=== PATIENT | female | born 1960 | race Caucasian/White ===

== ENCOUNTER 2022-02-23 09:02 | Outpatient (CLI) | payer BC, SELFPAY | END 2022-02-23 09:03 | disposition home or self-care (01) | LOC: OP CLINIC 09:03 | PROVIDERS: PCP Family Medicine; Visit Provider Surgery | DX: Z12.11 Encounter for screening for malignant neoplasm of colon (principal); K62.1 Rectal polyp | CPT/HCPCS: 45378; J2250; J3010 ==

== ENCOUNTER 2022-07-27 13:33 | Outpatient (CLI) | payer BC, SELFPAY ==
[2022-07-27 17:37] LABS: Albumin* 4.6 g/dL (3.3-5.0); Chloride* 101 mmol/L (96-114); Potassium* 4.5 mmol/L (3.6-5.1); Sodium* 136 mmol/L (135-149)
[2022-07-27 17:39] LABS: Creatinine* 0.6 mg/dL (0.5-1.5); Estimated Glomerular Filt Rate 101 ml/min
[2022-07-27 17:40] LABS: Alanine Aminotransferase* 23 U/L (4-35); Alkaline Phosphatase* 88 U/L (40-150); Aspartate Amino Transferase* 24 U/L (12-35); Bilirubin Total* 0.4 mg/dL (0.1-1.5); Blood Urea Nitrogen* 21 mg/dL (7-30); Calcium* 10.1 mg/dL (8.4-10.6); Carbon Dioxide* 27 mmol/L (20-32); Glucose* 94 mg/dL (60-115); Total Protein* 7.1 g/dL (6.0-8.3)
== END 2022-07-27 13:34 | disposition home or self-care (01) ==
LOC: NFLDREF 13:35
PROVIDERS: PCP Family Medicine; Visit Provider Family Medicine
DX: E78.5 Hyperlipidemia, unspecified (principal); M17.0 Bilateral primary osteoarthritis of knee; I10 Essential (primary) hypertension; F41.8 Other specified anxiety disorders; Z79.1 Long term (current) use of non-steroidal anti-inflammatories (NSAID)
CPT/HCPCS: 80053

== ENCOUNTER 2022-09-16 14:37 | Outpatient (CLI) | payer BC, SELFPAY | END 2022-09-16 14:38 | disposition home or self-care (01) | LOC: NFLDREF 14:37 | PROVIDERS: PCP Family Medicine; Visit Provider Family Medicine | DX: R19.7 Diarrhea, unspecified (principal) | CPT/HCPCS: 83630; 87045; 87046; 87077; 87177; 87209; 87338; 87427; 87493; 87505 ==

== ENCOUNTER 2022-10-06 14:26 | Outpatient (CLI) | payer BC, SELFPAY ==
--- NOTE | 2022-10-06 14:40 | CRLHL7_ITS ---
For Patients: As a result of the Century Cures Act, medical imaging exams and procedure reports are released immediately into your electronic medical record. You may view this report before your referring provider. If you have questions, please contact your health care provider. BILATERAL SCREENING MAMMOGRAM WITH COMPUTER-AIDED DETECTION TECHNIQUE: CC and MLO views were obtained. These mammographic images have been obtained using full-field digital technique. These mammographic images were interpreted with the benefit of computer-aided detection. COMPARISON FILM: 09/03/21, 09/02/20,08/28/19. FINDINGS: There are scattered areas of fibroglandular density IMPRESSION: There is no radiographic evidence for malignancy. ASSESSMENT: BI-RADS Category 2: Benign RECOMMENDATION: Routine screening mammogram in 1 year. A lay language report of this examination will be provided to the patient. Edwin Doyle M.D. Diagnostic Radiologist [email or web address] Transcribed: 1:59 p.m. DW/Dictated by: Edwin Doyle MD @ 10/07/2022 12:40:00 PM (Electronically Signed)
== END 2022-10-06 14:27 | disposition home or self-care (01) ==
LOC: MAMMO 14:27
PROVIDERS: PCP Family Medicine; Visit Provider Internal Medicine Hematology & Oncology
DX: Z12.31 Encounter for screening mammogram for malignant neoplasm of breast (principal)
CPT/HCPCS: 77063; 77067

== ENCOUNTER 2022-10-13 09:05 | Outpatient (CLI) | payer BC, SELFPAY ==
--- NOTE | 2022-10-13 09:15 | CRLHL7_ITS ---
For Patients: As a result of the Century Cures Act, medical imaging exams and procedure reports are released immediately into your electronic medical record. You may view this report before your referring provider. If you have questions, please contact your health care provider. RIGHT CHEST WALL ULTRASOUND INDICATION 62-year-old with lump in the midline chest. COMPARISON None. FINDINGS Ultrasound of the patient`s lump corresponds to a 1.2 x 0.7 x 1.1 cm superficial oval circumscribed hypoechoic mass with skin tract. This is compatible with a benign sebaceous cyst. IMPRESSION Patient`s lump corresponds to a benign sebaceous cyst. Recommend continuing with yearly screening mammography. BI-RADS Category 2: Benign Clare Araya M.D. Diagnostic/Breast Radiologist [email or web address] JESSICAP/mahesh aragon/Dictated by: Clare Araya MD @ 10/14/2022 8:59:00 AM (Electronically Signed)
== END 2022-10-13 09:06 | disposition home or self-care (01) ==
PROVIDERS: PCP Family Medicine; Visit Provider Internal Medicine Hematology & Oncology
DX: R22.2 Localized swelling, mass and lump, trunk (principal)
CPT/HCPCS: 76604

== ENCOUNTER 2023-01-07 14:58 | Outpatient (RCR) | payer BC, SELFPAY | END 2023-04-10 23:59 | disposition home or self-care (01) | LOC: CCIC 14:58 | PROVIDERS: PCP Family Medicine; Visit Provider Internal Medicine Hematology & Oncology | DX: C50.912 Malignant neoplasm of unspecified site of left female breast (principal); Z17.0 Estrogen receptor positive status [ER+]; Z79.811 Long term (current) use of aromatase inhibitors; R23.2 Flushing | CPT/HCPCS: 99212; 99213; 99214 ==

== ENCOUNTER 2023-01-29 07:35 | Outpatient (CLI) | payer BC, SELFPAY | END 2023-01-29 07:36 | disposition home or self-care (01) | LOC: NFLDREF 20:31 | PROVIDERS: PCP Family Medicine; Referring Provider Family Medicine; Visit Provider Family Medicine | DX: I10 Essential (primary) hypertension (principal); E78.5 Hyperlipidemia, unspecified; Z86.2 Personal history of diseases of the blood and blood-forming organs and certain disorders involving the immune mechanism; M85.80 Other specified disorders of bone density and structure, unspecified site | CPT/HCPCS: 80053; 80061; 82306 ==

== ENCOUNTER 2023-06-15 09:01 | Outpatient (CLI) | payer BC, SELFPAY ==
--- NOTE | 2023-06-15 09:15 | CRLHL7_ITS ---
For Patients: As a result of the Century Cures Act, medical imaging exams and procedure reports are released immediately into your electronic medical record. You may view this report before your referring provider. If you have questions, please contact your health care provider. INDICATION: Postmenopausal bleeding. TECHNIQUE: Ultrasound pelvis transabdominal and transvaginal. COMPARISON: None. FINDINGS: Uterus: 8 x 7 x 5 cm. There are 3 distinct fibroids. Largest fibroid in the left uterine body measures 3 cm. Second largest fibroid measures 2.3 cm. Third smallest fibroid is posterior and calcified. Endometrium: Transvaginal imaging was performed to better evaluate the endometrium. Endometrial thickness measures 3 mm. No sign of endometrial mass or fluid. Neither ovary was visualized. No ovarian or adnexal masses. Cul-de-sac: No significant free fluid. IMPRESSION: There are 3 distinct uterine fibroids with the largest measuring 3 cm. Endometrium appears normal. No other abnormality evident. Dictated by Jose Raul Tolbert MD @ 06/16/2023 2:43:33 PM (Electronically Signed)
== END 2023-06-15 09:02 | disposition home or self-care (01) ==
LOC: US 09:02
PROVIDERS: PCP Family Medicine; Visit Provider Family Medicine
DX: N95.0 Postmenopausal bleeding (principal); D25.9 Leiomyoma of uterus, unspecified
CPT/HCPCS: 76830; 76856

== ENCOUNTER 2023-10-08 14:14 | Outpatient (CLI) | payer BC, SELFPAY ==
--- NOTE | 2023-10-08 14:20 | MM_ITS ---
Patient: JUNG RAMIREZ Facility:?[facility] Patient ID:?[id number] Site Patient ID:?[id number]. Site :?[id number] Study:?XRay-Breast Bilateral 3D-10/08/2023 2:39:16 PM Ordering Physician:Librado Final Report: BILATERAL SCREENING MAMMOGRAM WITH COMPUTER-AIDED DETECTION AND TOMOSYNTHESIS TECHNIQUE: CC and MLO views were obtained. These mammographic images have been obtained using full-field digital technique. These mammographic images were interpreted with the benefit of computer-aided detection. Breast Tomosynthesis was used in this interpretation. COMPARISON FILM: 10/06/2022, 09/03/2021, 09/02/2020. FINDINGS: The breasts are heterogeneously dense, which may obscure small masses. IMPRESSION: There is no radiographic evidence for malignancy. ASSESSMENT: BI-RADS Category 2: Benign RECOMMENDATION: Routine screening mammogram in 1 year. A lay language report of this examination will be provided to the patient. Edwin Doyle M.D. Diagnostic Radiologist [email or web address] ALENA/sp R& Transcribed: 11:53 a.m. SP/Dictated by: Edwin Doyle MD @ 10/22/2023 11:12:00 AM Signed by:?Edwin Doyle MD @10/22/2023 12:07:04 PM (Electronic Signature)
== END 2023-10-08 14:15 | disposition home or self-care (01) ==
LOC: MAMMO 14:15
PROVIDERS: PCP Internal Medicine Hematology & Oncology; Visit Provider Family Medicine
DX: Z12.31 Encounter for screening mammogram for malignant neoplasm of breast (principal); R92.2 Inconclusive mammogram
CPT/HCPCS: 77063; 77067

== ENCOUNTER 2023-10-11 08:18 | Outpatient (CLI) | payer BC, SELFPAY | END 2023-10-11 08:19 | disposition home or self-care (01) | LOC: NFLDREF 10-13 14:11 | PROVIDERS: PCP Family Medicine; Referring Provider Family Medicine; Visit Provider Family Medicine | DX: I10 Essential (primary) hypertension (principal); M81.0 Age-related osteoporosis without current pathological fracture; Z79.1 Long term (current) use of non-steroidal anti-inflammatories (NSAID) | CPT/HCPCS: 80053; 82306 ==

== ENCOUNTER 2023-12-28 16:15 | Outpatient (RCR) | payer BC, SELFPAY | END 2024-03-24 11:40 | disposition home or self-care (01) | PROVIDERS: PCP Family Medicine; Visit Provider Family Medicine | DX: M54.16 Radiculopathy, lumbar region (principal); Z51.89 Encounter for other specified aftercare | CPT/HCPCS: 97110; 97112; 97140; 97161 ==

== ENCOUNTER 2024-01-06 14:33 | Outpatient (RCR) | payer BC, SELFPAY ==
--- NOTE | 2024-02-16 15:42 | ONC.NURNOTE ---
Dexa scan reviewed by Darby Vitale PA-C, per Dania pt still has osteopenia, repeat scan in 2 years.
== END 2024-07-04 23:59 | disposition home or self-care (01) ==
LOC: CCIC 14:33
PROVIDERS: PCP Family Medicine; Visit Provider Internal Medicine Hematology & Oncology
DX: C50.912 Malignant neoplasm of unspecified site of left female breast (principal); Z17.0 Estrogen receptor positive status [ER+]; M85.89 Other specified disorders of bone density and structure, multiple sites
CPT/HCPCS: 99214; G0463

== ENCOUNTER 2024-02-01 07:36 | Outpatient (CLI) | payer BC, SELFPAY ==
--- OUTSIDE RECORDS SUMMARY | 2024-02-04 15:15 | XMS_ITS | Clinical Summary ---
Author Organization [facility] Address [place], [place] [address] Care Team Providers Care Decay Control Operator Name Role Phone Pcp, No Primary Care Provider Unavailabl e Allergies Active Allergy Reactions Criticality Noted Date Comments Cephalosporins Rash 09/07/2017 Sulfa (Sulfonamide Antibiotics) 05/20 Medications Medication Sig Dispensed Refills Start Date End Date Status PSYLLIUM 500 MG CAPIndications:Irrit able bowel syndrome 0 06/07/2007 Activ e calcium 250 mg tablet Take 1 tablet by mouth 2 times daily with meals. 0 09/08/2012 Active vitamin e 1,000 unit cap Take by mouth once daily. 0 09/08/2012 Active multivitamin (MULTIPLE VITAMINS) tablet Take 1 tablet by mouth once daily. 0 09/21/2013 Active cod liver oil cap Take 2 capsules by mouth once daily. 0 11/21/2015 Active fexofenadine (JOHNNY) 180 mg tabletIndications:Al lergic rhinitis TAKE 1 TABLET BY MOUTH ONCE DAILY. 90 tablet 2 12/18/2017 Active anastrozole (ARIMIDEX) 1 mg tablet Take 1 mg by mouth once daily. 9 12/14/2017 Active CALCIUM 600 + D,3, tabletIndications:Os teopenia, unspecified location TAKE ONE TABLET BY MOUTH TWICE A DAY WITH MEALS 180 tablet 1 01/12/2018 Active lisinopril (PRINIVIL; ZESTRIL) 20 mg tabletIndications:HT N (hypertension) Take 1 tablet by mouth once daily. 90 tablet 07/17/2018 Active hydroCHLOROthiazide (HCTZ) 25 mg tabletIndications:HT N (hypertension) Take 1 tablet by mouth once daily. 90 tablet 07/17/2018 Active sertraline (ZOLOFT) 100 mg tabletIndications:Dy sthymic disorder Take 2 tablets by mouth once daily. 180 tablet 1 07/17/2018 Active Active Problems Problem Noted Date Diagnosed Date Malignant neoplasm of lower- inner quadrant of left breast in female, estrogen receptor positive 09/02/2017 Osteopenia 04/16/2015 Screen for colon cancer 01/08/2012 Overview: Colonoscopy 12/2011 normal repeat in 10 years Rosacea 08/20/2011 HTN (hypertension) 08/05/2010 Dysthymic disorder 06/07/2007 Overview: Depression Allergic rhinitis, cause unspecified 06/07/2007 Irritable bowel syndrome 06/07/2007 Immunizations Name Administration Dates Next Due AMB Influenza, IIV3 (Age >=3 years)(Flu Clinic O n[facility]) 05/20/2011 Influenza A (H1N1), Inactivated (Age >=3 Years) 08/06/2009 Influenza Virus, Unspecified 04/28/2017,04/26/20 14 Td (Age >=7 Years) 02/11/1996 Tdap 10/25/2007 Family History Medical History Relation Name Comments Arthritis Maternal Aunt Arthritis Maternal Grandmother Hypertension Mother Osteoporosis Mother diagnosed at 60 Relation Name Status Comments Father (Age 73) smoker Maternal Aunt Maternal Grandmother Mother Social History Tobacco Use Types Packs/Day Years Used Date Smoking Tobacco: Former Cigarettes Q uit: 07/19/2003 Smokeless Tobacco: Never Tobacco Cessation:Counseling Given: Yes Comments:quit in 2003 Alcohol Use Standard Drinks/Week Comments Yes 2 (1 standard drink = 0.6 oz pur e alcohol) occasional PHQ-2 Answer Date Recorded PHQ-2 Score 1 09/17/2018 Sex and Gender Information Value Date Recorded Sex Assigned at Not on file Gender Identity Not on file Sexual Orientation Not on file Obstetrics History Para Term AB IAB SAB Ectopic Multiple Livin g Live Births 4 4 4 4 Date Outcome GA Total Labor Labor/2nd/3rd Weight Sex Type Anes PTL Corrie A1 A5 Name Clin Term Term Term Term Last Filed Vital Signs Vital Sign Reading Time Taken Comments Blood Pressure 142/87 03/08/2018 2:43 PM CDT tow er Pulse 67 03/08/2018 2:43 PM CDT Temperature 36.5 ??C (97.7 ??F) 10/05/2017 1:46 PM CD T Respiratory Rate - - Oxygen Saturation 97% 03/08/2018 2:43 PM CDT Inhaled Oxygen Concentration - - Weight 80.8 kg (178 lb 3.2 oz) 03/08/2018 2:43 P M CDT Height 171.7 cm (5' 7.6) 03/08/2018 2:43 PM CDT Body Mass Index 27.42 03/08/2018 2:43 PM CDT Plan of Treatment Health Maintenance Due Date Last Done Comments HIV for age 15-65 01/04/1975 Zoster (shingles) series for age 50+ (1 of 2) 01/04/2010 Tetanus booster 10/24/2017 10/25/2007, 02/11/1996 Depression screening for age 12+ 12/16/2018 12/16/2017, 12/08/2016, 11/21/2015 BMI (ht and wt on same day) for age 18+ 03/08/2019 03/08/2018, 09/16/2017, 09/07/2017, Additional history exists Mammogram for age 45-75 08/26/2019 08/26/19 19, 08/24/2017, 08/19/2016, Additional history exists Lipids for age 45-75 11/22/2020 11/23/2015, 10/10/2014, 09/15/2012, Additional history exists Colonoscopy through age 75 01/07/2022 01/08/2012, Pap test for age 21-65 02/20/2023 0, 02/21/2020, 12/08/2016, Additional history exists COVID-19 vaccine series (2022- season) 2023 Influenza for age 50-64 03/19/2024 04/28/20 17, 04/26/2014, 04/02/2012, Additional history exists Tdap Completed 10/25/2007 Hepatitis C screening for age 18-79 Completed 11/23/2015 Pneumococcal series for age 6-64 Aged Out No longer eligible based on patient's age to complete this topic Procedures Procedure Name Priority Date/Time Associated Diagnosis Comments CONSTRUCTION FOREMAN THIN PREP PAP SCREEN IMAGED Routine 02/21/2020 3:30 PM CDT SCAN-MAMMOGRAPHY REPORT 08/26/2018 12:00 AM SOCIAL SECRETARY ANTI HCV Routine 11/23/2015 9:07 AM CDT Need for hepatitis C screening test LIPID PANEL W REFLEX MEASURED LDL Routine 11/23/2015 9:07 AM CDT Screening, lipid from Last 3 Months or Most Recently Relevant to Health Maintenance Results * CONSTRUCTION FOREMAN THIN PREP PAP SCREEN IMAGED (02/21/2020 3:30 PM CDT) Pathologist [facility] Case Report Gynecologic Cytology Report ? Case: [id number] ? Authorizing Provider: ??Bing Kimbrough MD ??Collected: ? 02/21/2020 1530 ? Ordering Location: ? [facility] ?Received: ?02/23/2020 1355 ? First Screen: ?Cassi Espino ? Specimen: ?CONSTRUCTION FOREMAN ThinPrep Vial Screening, Cervical/Vaginal ? 03/01/2020 2:15 PM CDT [facility] INTERPRETATION/ RESULT NEGATIVE FOR INTRAEPITHELIAL LESION OR MALIGNANCY (NIL) (none) 03/01/2020 2:15 PM CDT [facility] IMEN ADEQUACY Satisfactory for evaluation Endocervical component present 03/01/2020 2:15 PM CDT [facility] HPV REQUEST HPV and PAP 03/01/2020 2:15 PM CDT [facility] Additional Information 03/01/2020 2:15 PM CDT [facility] Comment: Interpreted at [facility] - [address], [place] [address] Automated Review Successful 03/01/2020 2:15 PM CDT [facility] Comment:Specimen processed s uccessfully by automated booth usher device, ThinPrep Imaging System, [employer] ANCILLARY TESTING CONSTRUCTION FOREMAN HPV Ordered, Please see separate report 03/01/2020 2:15 PM CDT [facility] Note The pap test is a screening technique, not a diagnostic procedure. It is used primarily to screen for squamous cancers and precursor lesions. Published studies have shown that it is subject to both false negative and false positive results. The pap test should not be used as the sole means to diagnose or exclude pre-malignant and malignant lesions. 03/01/2020 2:15 PM CDT [facility] Other (Cervical/Vagina l) 02/21/2020 3:30 PM CDT 02/23/2020 1:55 PM CDT Bing Kimbrough MD PATHOLOGY/CYTOLO GY [facility] [address] [place] [address], * SCAN-MAMMOGRAPHY REPORT (08/26/2018 12:00 AM SOCIAL SECRETARY) Anatomical Region Laterality Modality Other Scanner OTHER * (ABNORMAL) LIPID PANEL W REFLEX MEASURED LDL (11/23/2015 9:07 AM CDT) CHOLESTEROL,TOTAL 203(H) 100 - 199 mg/dL 11/23/2015 9:47 AM CDT [facility] TRIGLYCERIDES 70 <150 mg/dL 11/23/2015 9:47 AM CDT [facility] HDL CHOLESTEROL 66 >40 mg/dL 11/23/2015 9:47 AM CDT [facility] NON-HDL CHOLESTEROL 137 <145 mg/dl 11/23/2015 9:47 AM CDT [facility] CHOL/HDL RATIO 3.08 <4.50 11/23/2015 9:47 AM CDT [facility] LDL CHOLESTEROL 123 <=130 mg/dL 11/23/2015 9:47 AM CDT [facility] PATIENT STATUS FASTING 11/23/2015 9:47 AM CDT [facility] Blood specimen (specimen) BLOOD SPECIMEN / Unknown Venipuncture / Unknown 11/23/2015 9:07 AM CDT 11/23/2015 9:07 AM CDT Rebeca Lowry NP CHEMISTRY [facility] [address] [place] [address], * ANTI HCV (11/23/2015 9:07 AM CDT) HEPATITIS C ANTIBODY Non-Reacti ve Non-Reacti ve 11/23/2015 4:59 PM CDT [facility] Blood specimen (specimen) BLOOD SPECIMEN / Unknown Venipuncture / Unknown 11/23/2015 9:07 AM CDT 11/23/2015 9:07 AM CDT Narrative [facility] - 11/23/2015 4:59 PM CDT Antibodies to HCV not detected; does not exclude the possibility of exposure to HCV. Rebeca Lowry NP SEND OUTS [facility] [address] [place] [address], [place] from Last 3 Months or Most Recently Relevant to Health Maintenance Care Teams Decay Control Operator Relationship Specialty Start Date End Date Pcp, No . PCP - General 06/24/18
== END 2024-02-01 07:37 | disposition home or self-care (01) ==
LOC: NFLDREF 02-04 15:13
PROVIDERS: PCP Family Medicine; Referring Provider Family Medicine; Visit Provider Family Medicine
DX: E78.5 Hyperlipidemia, unspecified (principal); I10 Essential (primary) hypertension; R73.01 Impaired fasting glucose; Z79.811 Long term (current) use of aromatase inhibitors
CPT/HCPCS: 80053; 80061

== ENCOUNTER 2024-02-09 13:35 | Outpatient (CLI) | payer BC, SELFPAY ==
--- OUTSIDE RECORDS SUMMARY | 2024-02-09 13:39 | XMS_ITS | Clinical Summary ---
Author Organization [facility] Address [place], [place] [address] Care Team Providers Care Pneumatic Hoist Operator Name Role Phone Pcp, No Primary [...] Procedure Name Priority Date/Time Associated Diagnosis Comments HUMANE AGENT THIN PREP PAP SCREEN IMAGED Routine 02/21/2020 3:30 PM CDT SCAN-MAMMOGRAPHY REPORT 08/26/2018 12:00 AM PAPER MILL MANAGER ANTI HCV Routine 11/23/2015 9:07 AM CDT Need for hepatitis C screening test LIPID PANEL W REFLEX MEASURED LDL Routine 11/23/2015 9:07 AM CDT Screening, lipid from Last 3 Months or Most Recently Relevant to Health Maintenance Results * HUMANE AGENT THIN PREP PAP SCREEN IMAGED (02/21/2020 3:30 PM CDT) Pathologist [facility] Case Report Gynecologic Cytology Report ? Case: [id number] ? Authorizing Provider: ??Bing Kimbrough MD ??Collected: ? 02/21/2020 1530 ? Ordering Location: ? [facility] ?Received: ?02/23/2020 1355 ? First Screen: ?Cassi Espino ? Specimen: ?HUMANE AGENT ThinPrep Vial Screening, Cervical/Vaginal ? 03/01/2020 2:15 PM CDT [facility] INTERPRETATION/ RESULT NEGATIVE FOR INTRAEPITHELIAL LESION OR MALIGNANCY (NIL) (none) 03/01/2020 2:15 PM CDT [facility] IMEN ADEQUACY Satisfactory for evaluation Endocervical component present 03/01/2020 2:15 PM CDT [facility] HPV REQUEST HPV and PAP 03/01/2020 2:15 PM CDT [facility] Additional Information 03/01/2020 2:15 PM CDT [facility] Comment: Interpreted at [facility] - [address], [place] [address] Automated Review Successful 03/01/2020 2:15 PM CDT [facility] Comment:Specimen processed s uccessfully by automated curb attendant device, ThinPrep Imaging System, [employer] ANCILLARY TESTING HUMANE AGENT HPV Ordered, Please see separate report 03/01/2020 2:15 PM CDT [facility] Note The pap test is a [...] and malignant lesions. 03/01/2020 2:15 PM CDT [facility] Other (Cervical/Vagina l) 02/21/2020 3:30 PM CDT 02/23/2020 1:55 PM CDT Bing Kimbrough MD PATHOLOGY/CYTOLO GY [facility] [address] [place] [address], * SCAN-MAMMOGRAPHY REPORT (08/26/2018 12:00 AM PAPER MILL MANAGER) Anatomical Region Laterality Modality Other Scanner OTHER * (ABNORMAL) LIPID PANEL W REFLEX MEASURED LDL (11/23/2015 9:07 AM CDT) CHOLESTEROL,TOTAL 203(H) 100 - 199 mg/dL 11/23/2015 9:47 AM CDT [facility] TRIGLYCERIDES 70 <150 mg/dL 11/23/2015 9:47 AM CDT [facility] HDL CHOLESTEROL 66 >40 mg/dL 11/23/2015 9:47 AM CDT [facility] NON-HDL CHOLESTEROL 137 <145 mg/dl 11/23/2015 9:47 AM CDT [facility] CHOL/HDL RATIO 3.08 <4.50 11/23/2015 9:47 AM CDT [facility] LDL CHOLESTEROL 123 <=130 mg/dL 11/23/2015 9:47 AM CDT [facility] PATIENT STATUS FASTING 11/23/2015 9:47 AM CDT [facility] Blood specimen (specimen) BLOOD SPECIMEN / Unknown Venipuncture / Unknown 11/23/2015 9:07 AM CDT 11/23/2015 9:07 AM CDT Rebeca Lowry NP CHEMISTRY [facility] [address] [place] [address], * ANTI HCV (11/23/2015 9:07 AM CDT) HEPATITIS C ANTIBODY Non-Reacti ve Non-Reacti ve 11/23/2015 4:59 PM CDT [facility] Blood specimen (specimen) BLOOD SPECIMEN / Unknown Venipuncture / Unknown 11/23/2015 9:07 AM CDT 11/23/2015 9:07 AM CDT Narrative [facility] - 11/23/2015 4:59 PM CDT Antibodies to HCV not detected; does not exclude the possibility of exposure to HCV. Rebeca Lowry NP SEND OUTS [facility] [address] [place] [address], [place] from Last 3 Months or Most Recently Relevant to Health Maintenance Care Teams Pneumatic Hoist Operator Relationship Specialty Start Date End Date Pcp, No . PCP - General 06/24/18
--- NOTE | 2024-02-09 14:00 | CRLHL7_ITS ---
For Patients: As a result of the Century Cures Act, medical imaging exams and procedure reports are released immediately into your electronic medical record. You may view this report before your referring provider. If you have questions, please contact your health care provider. DXA BONE MINERAL DENSITY STUDY Reason for exam: History of cancer, aromatase inhibitor. Current height (inches): 67 Weight (lbs.): 178 Menopause age: 52 Ethnicity: White 1. Have you had a previous hip or vertebral fracture? Yes. 2. Have you had any fractures during your adult life which did not result from significant trauma (e.g., auto accident)? Yes. 3. Did either of your parents have a hip fracture? No. 4. Do you smoke? No. 5. Have you ever taken Glucocorticoids? No. 6. Do you have rheumatoid arthritis? No. 7. Do you have secondary osteoporosis? No. 8. Do you drink 3 or more alcoholic drinks per day? No. 9. Are you being treated for osteoporosis? No. 10. Have you ever taken any of the following medications: Actonel, Evista, Fosamax, Miacalcin, Reclast, Boniva, Forteo, HRT (i.e., estrogen/hormone therapy), Protelos, Prolia, Vitamin D, Calcium, other ??? please specify. ANSWER: Yes; vitamin D, calcium. 11. Do you have any of the following medical conditions: Anorexia or bulimia, asthma or emphysema, end stage renal disease, hyperparathyroidism, any seizure disorders, cancer, inflammatory bowel diseases, hysterectomy, other ??? please specify. ANSWER: Yes; cancer. 12. What was your maximum height (inches)? 67. 13. Do you perform weightbearing exercise regularly? Yes. 14. Do you regularly consume dairy products? Yes. 15. Do you drink caffeinated beverages? Yes. 16. At what age did your period start? 14. 17. Are you premenopausal? No. 18. How many full-term pregnancies have you had? 4. 19. Have you ever missed your period for more than 6 months in a row (not including or menopause)? No. TECHNIQUE: Bone mineral density study was performed using the [employer] FINDINGS: The results of the study expressed as bone mineral density (BMD) are as follows: Lumbar Spine L1 to L2, L4: BMD: 0.909 g/cm2. T-score: -1.1. Z-score: 0.6. Right Neck: BMD: 0.674 g/cm2. T-score: -1.6. Z-score: -0.1. Right Total Hip: BMD: 0.883 g/cm2. T-score: -0.5. Z-score: 0.7. Left Radius 33%: BMD: 0.564 g/cm2. T-score: -2.2. Z-score: -0.6. IMPRESSION: Osteopenia. COMPARISON: Compared with scan of 11/19/2021, the bone mineral density has increased by 6.1% at the spine, increased by 0.5% at the hip, and decreased by 6.3% at the radius. Compared with scan of 09/06/2019, the bone mineral density has decreased by 10.0% at the spine and decreased by 3.8% at the hip. *Comparison exams done prior to 12/2019 were performed on different unit, [facility]. EDWIN MCGRATH M.D. Diagnostic Radiologist [email or web address] Transcribed: 9:[address]/Dictated by: Edwin Mcgrath MD @ 02/10/2024 8:09:00 AM (Electronically Signed)
== END 2024-02-09 13:36 | disposition home or self-care (01) ==
LOC: RAD 13:37
PROVIDERS: PCP Family Medicine; Visit Provider Physician Assistant
DX: Z79.811 Long term (current) use of aromatase inhibitors (principal); M85.89 Other specified disorders of bone density and structure, multiple sites
CPT/HCPCS: 77080

== ENCOUNTER 2024-06-12 14:59 | Outpatient (CLI) | payer BC, SELFPAY ==
--- OUTSIDE RECORDS SUMMARY | 2024-06-12 15:29 | XMS_ITS | Clinical Summary ---
Author Organization [employer] [facility] Address [place], [place] [address] Care Team Providers Care Engraver Optical Frames Name Role Phone Pcp, No Primary Care [...] Osteopenia 04/16/2015 Screen for colon cancer 01/08/2012 Overview (01/08/2012): Colonoscopy 12/2011 normal repeat in 10 years Rosacea 08/20/2011 HTN (hypertension) 08/05/2010 Dysthymic disorder 06/07/2007 Overview (06/07/2007): Depression Allergic rhinitis, cause unspecified 06/07/2007 Irritable [...] 67 03/08/2018 2:43 PM CDT Temperature 36.5 C (97.7 F) 10/05/2017 1:46 PM CDT Respiratory Rate - - Oxygen Saturation 97% [...] 12/08/2016, Additional history exists COVID-19 vaccine series (2023- season) 2024 Influenza for age 50-64 03/19/2024 04/28/20 17, 04/26/2014, 04/02/2012, Additional history exists Tdap Completed 10/25/2007 Hepatitis C screening for age 18-79 Completed 11/23/2015 Pneumococcal series for age 6-64 Aged Out No longer eligible based on patient's age to complete this topic Procedures Procedure Name Priority Date/Time Associated Diagnosis Comments PUG MILL OPERATOR THIN PREP PAP SCREEN IMAGED Routine 02/21/2020 3:30 PM CDT SCAN-MAMMOGRAPHY REPORT 08/26/2018 12:00 AM TUFTING CREELER ANTI HCV Routine 11/23/2015 9:07 AM CDT Need for hepatitis C screening test LIPID PANEL W REFLEX MEASURED LDL Routine 11/23/2015 9:07 AM CDT Screening, lipid from Last 3 Months or Most Recently Relevant to Health Maintenance Results * PUG MILL OPERATOR THIN PREP PAP SCREEN IMAGED (02/21/2020 3:30 PM CDT) Case Report Gynecologic Cytology Report Case: [id number] Authorizing Provider: Bing Kimbrough MD Collected: 02/21/2020 1530 Ordering Location: [facility] Received: 02/23/2020 3116 First Screen: Cassi Espino Specimen: PUG MILL OPERATOR ThinPrep Vial Screening, Cervical/Vaginal 03/01/2020 2:15 PM CDT [facility] [employer] [facility] ENTRAL LABORATORY INTERPRETATION/ RESULT NEGATIVE FOR INTRAEPITHELIAL LESION OR MALIGNANCY (NIL) (none) 03/01/2020 2:[address] [facility] IMEN ADEQUACY Satisfactory for evaluation Endocervical component present 03/01/2020 2:[address] [facility] HPV REQUEST HPV and PAP 03/01/2020 2:15 PM CDT [facility] ENTRAL LABORATORY Additional Information 03/01/2020 2:15 PM CDT [facility] ENTRAL LABORATORY Comment: Interpreted at [facility] TMAT [facility] Central Laboratory - [address], [place] [address] Automated Review Successful 03/01/2020 2:15 PM CDT [facility] ENTRPA LABORATORY Comment:Specimen processed s uccessfully by automated tin roofer device, ThinPrep Imaging System, [employer] ANCILLARY TESTING PUG MILL OPERATOR HPV Ordered, Please see separate report 03/01/2020 2:15 PM CDT [facility] ENTRAL LABORATORY Note The pap test is a [...] and malignant lesions. 03/01/2020 2:15 PM CDT [facility]-C ENTRAL LABORATORY Other (Cervical/Vagina l) 02/21/2020 3:30 PM CDT 02/23/2020 1:55 PM CDT Bing Kimbrough MD PATHOLOGY/CYTOLO GY [facility] LABORAT[facility]-CENTRAL LABORATORY [address] [place] [address], [place] * SCAN-MAMMOGRAPHY REPORT (08/26/2018 12:00 AM TUFTING CREELER) Anatomical Region Laterality Modality Other Scanner OTHER * (ABNORMAL) LIPID PANEL W REFLEX MEASURED LDL (11/23/2015 9:07 AM CDT) CHOLESTEROL,TOTAL 203(H) 100 - 199 mg/dL 11/23/2015 9:47 AM CDT [facility] TRIGLYCERIDES 70 <150 mg/dL 11/23/2015 9:47 AM CDT [facility] HDL CHOLESTEROL 66 >40 mg/dL 11/23/2015 9:47 AM CDT [facility] NON-HDL CHOLESTEROL 137 <145 mg/dl 11/23/2015 9:47 AM CDT [facility] CHOL/HDL RATIO 3.08 <4.50 11/23/2015 9:47 AM CDT [facility] LDL CHOLESTEROL 123 <=130 mg/dL 11/23/2015 9:47 AM CDT [facility] PATIENT STATUS FASTING 11/23/2015 9:47 AM CDT [facility] Blood specimen (specimen) BLOOD SPECIMEN / Unknown Venipuncture / Unknown 11/23/2015 9:07 AM CDT 11/23/2015 9:07 AM CDT Rebeca Lowry NP CHEMISTRY [facility] [address] [place] [address], [place] [phone] * ANTI HCV (11/23/2015 9:07 AM CDT) HEPATITIS C ANTIBODY Non-Reacti ve Non-Reacti ve 11/23/2015 4:59 PM CDT [facility] TRAL LABORATORY Blood specimen (specimen) BLOOD SPECIMEN / Unknown Venipuncture / Unknown 11/23/2015 9:07 AM CDT 11/23/2015 9:07 AM CDT Narrative [facility] - 11/23/2015 4:59 PM CDT Antibodies to HCV not detected; does not exclude the possibility of exposure to HCV. Rebeca Lowry NP SEND OUTS [facility] [address] [place] [address], from Last 3 Months or Most Recently Relevant to Health Maintenance Care Teams Engraver Optical Frames Relationship Specialty Start Date End Date Pcp, No . PCP - General 06/24/18
[2024-06-15 04:34] LABS: HPV Source Cervical; HPV, High Risk by TMA Not Detected
== END 2024-06-12 15:00 | disposition home or self-care (01) ==
PROVIDERS: PCP Family Medicine; Visit Provider Obstetrics & Gynecology
DX: N95.0 Postmenopausal bleeding (principal); Z12.4 Encounter for screening for malignant neoplasm of cervix
CPT/HCPCS: 87624; 87625; 88141; 88142

== ENCOUNTER 2024-06-19 13:04 | Outpatient (CLI) | payer BC, SELFPAY ==
--- NOTE | 2024-06-19 13:00 | CRLHL7_ITS ---
For Patients: As a result of the Century Cures Act, medical imaging exams and procedure reports are released immediately into your electronic medical record. You may view this report before your referring provider. If you have questions, please contact your health care provider. INDICATION: Postmenopausal bleeding. TECHNIQUE: Transabdominal and transvaginal pelvic ultrasound. FINDINGS: Uterus is retroflexed and measures 5.3 x 4.6 x 4.4 cm. Normal endometrial stripe thickness of 2 mm. There are 3 leiomyomas in the uterus measuring 3.1, 2.6, and 1.3 cm. These are stable from the prior exam. Both ovaries appear normal. No adnexal mass or free fluid. IMPRESSION: Stable uterine leiomyomas. Dictated by Solitario Menezes MD @ 06/20/2024 11:05:54 AM (Electronically Signed)
--- OUTSIDE RECORDS SUMMARY | 2024-06-19 13:07 | XMS_ITS | Clinical Summary ---
Author Organization [employer] [facility] Address [place], [place] [address] Care Team Providers Care Zyglo Inspector Name Role Phone Pcp, No Primary Care [...] cause unspecified 06/07/2007 Irritable bowel syndrome 06/07/2007 Encounters Date Type Department Care Team Description 06/13/2024 Lab Requisition [facility] C[facility]TRAL [facility] [phone] Senait Noel MD from Last 3 Months Immunizations Name Administration Dates Next Due AMB [...] 12/08/2016, Additional history exists COVID-19 vaccine series ( season) 2024 Influenza for age 50-64 03/19/2024 04/28/20 17, 04/26/2014, 04/02/2012, Additional history exists Tdap Completed 10/25/2007 Hepatitis C screening for age 18-79 Completed 11/23/2015 Pneumococcal series for age 6-64 Aged Out No longer eligible based on patient's age to complete this topic Procedures Procedure Name Priority Date/Time Associated Diagnosis Comments LAB TRACKING EVENT Routine 06/12/2024 2: 55 PM TURNER MACHINE PATH TISSUE EXAM Routine 06/12/2024 2:55 PM TURNER MACHINE ACADEMIC AFFAIRS VICE PRESIDENT THIN PREP PAP SCREEN IMAGED Routine 02/21/2020 3:30 PM CDT SCAN-MAMMOGRAPHY REPORT 08/26/2018 12:00 AM TURNER MACHINE ANTI HCV Routine 11/23/2015 9:07 AM CDT Need for hepatitis C screening test LIPID PANEL W REFLEX MEASURED LDL Routine 11/23/2015 9:07 AM CDT Screening, lipid from Last 3 Months or Most Recently Relevant to Health Maintenance Results * LAB TRACKING EVENT (06/12/2024 2:55 PM TURNER MACHINE) Other (Other) Client Collect / Unknown 06/12/2024 2:55 PM TURNER MACHINE 06/13/2024 1:58 PM TURNER MACHINE Senait Noel MD LAB BILL ONLY [id number]-CENTRAL LABORATORY [address] [place] [address], * PATH TISSUE EXAM (06/12/2024 2:55 PM TURNER MACHINE) Case Report Pathology Report Case: [id number] Authorizing Provider: Senait Noel MD Collected: 06/12/2024 1455 Ordering Location: [facility] LAB Received: 06/13/2024 1824 Pathologist: Bety Alvarez MD Specimen: Endometrial Biopsy 06/19/2024 11:22 AM TURNER MACHINE [facility] EN[facility] Final Diagnosis A) ENDOMETRIUM, BIOPSY: 1. Atrophic endometrium, see comment 2. Negative for hyperplasia, atypia, and malignancy in this sample 06/19/2024 11:22 AM TURNER MACHINE [facility] Comment A) The specimen is scant. However, atrophic endometrium typically yields a scant specimen. If the clinical impression does not correlate with the histologic finding of endometrial atrophy, further endometrial tissue sampling is recommended as clinically indicated. 06/19/2024 11:22 AM TURNER MACHINE [facility] Clinical Information Postmenopausal bleeding. 06/19/2024 11:22 AM TURNER MACHINE [facility] Gross Description A) Received in formalin, labeled with the patient's name and endometrial BX, is a 0.3 x 0.2 x 0.1 cm aggregate of blood tinged mucous. The specimen is entirely submitted in 1 cassette. JPW 06/14/2024 06/19/2024 11:22 AM TURNER MACHINE [facility] Microscopic Description The final diagnosis is based on microscopic examination of appropriate sections of all specimens. 06/19/2024 11:22 AM TURNER MACHINE [facility] Additional Information Interpreted at [facility] - [address] [place] [address] 06/19/2024 11:22 AM [facility] Other (Endometrial Biopsy) 06/12/2024 2:55 PM TURNER MACHINE 06/13/2024 6:24 PM TURNER MACHINE Senait Noel MD PATHOLOGY/CYTOLO GY [facility] [address] [place] [address], * ACADEMIC AFFAIRS VICE PRESIDENT THIN PREP PAP SCREEN IMAGED (02/21/2020 3:30 PM CDT) Case Report Gynecologic Cytology Report Case: [id number] Authorizing Provider: Bing Kimbrough MD Collected: 02/21/2020 1530 Ordering Location: [facility] Received: 02/23/2020 1355 First Screen: Cassi Espino Specimen: ACADEMIC AFFAIRS VICE PRESIDENT ThinPrep Vial Screening, Cervical/Vaginal 03/01/2020 2:15 PM CDT [facility] INTERPRETATION/ RESULT NEGATIVE FOR INTRAEPITHELIAL LESION OR MALIGNANCY (NIL) (none) 03/01/2020 2:15 PM CDT [facility] IMEN ADEQUACY Satisfactory for evaluation Endocervical component present 03/01/2020 2:15 PM CDT [facility] HPV REQUEST HPV and PAP 03/01/2020 2:15 PM CDT [facility] Additional Information 03/01/2020 2:15 PM CDT [facility] Comment: Interpreted at [facility] - [address], [place] [address] Automated Review Successful 03/01/2020 2:15 PM CDT [facility] Comment:Specimen processed s uccessfully by automated academic associate device, ThinPrep Imaging System, [employer] ANCILLARY TESTING ACADEMIC AFFAIRS VICE PRESIDENT HPV Ordered, Please see separate report 03/01/2020 2:15 PM CDT [facility] Note The pap test is a [...] and malignant lesions. 03/01/2020 2:15 PM CDT [facility] Other (Cervical/Vagina l) 02/21/2020 3:30 PM CDT 02/23/2020 1:55 PM CDT Bing Kimbrough MD PATHOLOGY/CYTOLO GY [facility] [address] [place] [address], * SCAN-MAMMOGRAPHY REPORT (08/26/2018 12:00 AM TURNER MACHINE) Anatomical Region Laterality Modality Other Scanner OTHER * (ABNORMAL) LIPID PANEL W REFLEX MEASURED LDL (11/23/2015 9:07 AM CDT) CHOLESTEROL,TOTAL 203(H) 100 - 199 mg/dL 11/23/2015 9:47 AM CDT [facility] TRIGLYCERIDES 70 <150 mg/dL 11/23/2015 9:47 AM CDT [facility] HDL CHOLESTEROL 66 >40 mg/dL 11/23/2015 9:47 AM CDT [facility] NON-HDL CHOLESTEROL 137 <145 mg/dl 11/23/2015 9:47 AM CDT [facility] CHOL/HDL RATIO 3.08 <4.50 11/23/2015 9:47 AM CDT [facility] LDL CHOLESTEROL 123 <=130 mg/dL 11/23/2015 9:47 AM CDT [facility] PATIENT STATUS FASTING 11/23/2015 9:47 AM CDT [facility] Blood specimen (specimen) BLOOD SPECIMEN / Unknown Venipuncture / Unknown 11/23/2015 9:07 AM CDT 11/23/2015 9:07 AM CDT Rebeca Lowry NP CHEMISTRY [facility] [address] [place] [address], * ANTI HCV (11/23/2015 9:07 AM CDT) HEPATITIS C ANTIBODY Non-Reacti ve Non-Reacti ve 11/23/2015 4:59 PM CDT [facility] TRAL LABORATORY Blood specimen (specimen) BLOOD SPECIMEN / Unknown Venipuncture / Unknown 11/23/2015 9:07 AM CDT 11/23/2015 9:07 AM CDT Narrative [facility] LABORATORY-CENTRAL LABORATORY - 11/23/2015 4:59 PM CDT Antibodies to HCV not detected; does not exclude the possibility of exposure to HCV. Rebeca Lowry NP SEND OUTS [facility] LABORATORY-CENTRAL LABORATORY [address] [place] [address], [place] from Last 3 Months or Most Recently Relevant to Health Maintenance Care Teams Zyglo Inspector Relationship Specialty Start Date End Date Pcp, No . PCP - General 06/24/18
== END 2024-06-19 13:05 | disposition home or self-care (01) ==
PROVIDERS: PCP Family Medicine; Visit Provider Obstetrics & Gynecology
DX: N95.0 Postmenopausal bleeding (principal); D25.9 Leiomyoma of uterus, unspecified
CPT/HCPCS: 76830; 76856

== ENCOUNTER 2024-07-13 15:05 | Outpatient (CLI) | payer BC, SELFPAY | END 2024-07-13 15:06 | disposition home or self-care (01) | PROVIDERS: PCP Family Medicine; Visit Provider Family Medicine | DX: I10 Essential (primary) hypertension (principal) | CPT/HCPCS: 80048 ==

== ENCOUNTER 2024-07-20 07:13 | Day surgery (SDC) | payer BC, SELFPAY ==
[2024-07-20] VITALS (24 sets, daily range): BP systolic 76–173; BP diastolic 57–108; PULSE 51–72; RESP 12–18; TEMP 36.1–36.6; O2SAT 87–99; BMI 27.6
[2024-07-20] MEDS: ACETAMINOPHEN 500 MG TABLET 1000 MG PO ×2 (07:32→14:28)
[2024-07-20] MEDS: CELECOXIB 200 MG CAPSULE PO (07:32)
[2024-07-20] MEDS: LACTATED RINGERS 1000 ML 1,000 ML 100 ML IV (07:33)
[2024-07-20] MEDS: SODIUM CHLORIDE 0.9 % (FLUSH) 10 ML SYRINGE IVF (07:33)
[2024-07-20] MEDS: OXYCODONE (CR) 10 MG TAB.ER.12H PO (07:33)
[2024-07-20] MEDS: MIDAZOLAM HCL 1 MG/ML inj IVP (08:32)
[2024-07-20] MEDS: fentaNYL 100 MCG/2 ML inj IVP (08:32)
--- NOTE | 2024-07-20 08:40 | SUR.PREOP ---
TIME?OUT:?0832 PT/RN/MDA?VERIFICATION?OF?SURGICAL?SITE,?PROCEDURE,?AND?CONSENT OBTAINED?PRIOR?TO?INVASIVE?PROCEDURE.
[2024-07-20] MEDS: CEFAZOLIN 2 GM INJ IVP (08:50)
[2024-07-20] MEDS: TRANEXAMIC ACID 100 MG/ML INJ 1000 MG IV (08:51)
--- NOTE | 2024-07-20 09:55 | CRLHL7_ITS ---
For Patients: As a result of the Cures Act, medical imaging exams and procedure reports are released immediately into your electronic medical record. You may view this report before your referring provider. If you have questions, please contact your health care provider. Indication: Postop TKA Technique: Two views right knee Findings/Impression: Hardware from a right total knee arthroplasty is in satisfactory position. Bone alignment is normal. No sign of acute fracture. Postop changes are within normal limits. Dictated by Edwin Doyle MD @ 07/20/2024 2:28:33 PM (Electronically Signed)
--- NOTE | 2024-07-20 09:58 | PM.ORPRC ---
Procedure Note Date of procedure: 07/20/24 Procedure: PREOPERATIVE DIAGNOSIS: Right knee osteoarthritis POSTOPERATIVE DIAGNOSIS: Right knee osteoarthritis NAME OF OPERATION: Right total knee arthroplasty SURGEON: Garrett Perez MD SHUTTLE VENEERING SUPERVISOR: IFEANYI Morillo ANESTHESIA: Spinal ESTIMATED BLOOD LOSS: 0 mL COMPLICATIONS: None SPECIMENS: None DRAINS: None PREOPERATIVE ANTIBIOTICS: Ancef 2 grams IMPLANTS: 1. J&J Attune # 6 narrow posterior stabilized femur 2. #4 fixed-bearing tibia 3. #6 posterior stabilized, 5 mm fixed-bearing polyethylene 4. 38 patella INDICATIONS: The patient is a 64-year-old with a longstanding history of severe, unrelenting right knee pain secondary to end-stage (grade IV) right knee osteoarthritis. Despite appropriate nonoperative management, including activity modification, anti-inflammatories, [id number] pain medication, bracing, physical therapy, and injections they continue to have pain and disability. Operative intervention was offered. The risks, benefits and expected outcomes were discussed in detail. These included but were not limited to: Infection, bleeding, injury to blood vessel or nerve, venous thromboembolism. All questions were answered to their satisfaction. Use of an expanded function dental assistant was necessary throughout the case for patient positioning and safety, soft tissue retraction, and closure. PROCEDURE: Spinal anesthesia was administered. The patient was placed supine on the operating table. The expanded function dental assistant made sure the patient was positioned appropriately. The lower extremity was prepped and draped in the usual sterile fashion. The limb was exsanguinated with the Ramy bandage. The pneumatic tourniquet was inflated to 300 mmHg. A standard anterior incision was made with the knee in flexion. Subcutaneous dissection was sharply taken through fascial layer #1. Full-thickness medial and lateral flaps were elevated. The expanded function dental assistant retracted the soft tissues and protected them throughout the case. A standard subvastus approach was made. The patella was subluxed. The infrapatellar fat pad was preserved. The menisci and cruciate ligaments were sharply d?brided. Marginal osteophytes were d?brided with the rongeur. The drill was used to penetrate the femoral canal. The canal was aspirated and irrigated with pulse lavage. The intramedullary femoral guide was placed for a 5-degree valgus cut, removing 10 mm off the distal femur. The saw was used to make the cut. Whitesides line and the trans epicondylar axis were marked. The femoral sizing guide was pinned onto the distal femur. Three degrees of external rotation nicely parallels the transepicondylar axis. Pins were placed for posterior referencing. The four-in-one cutting guide was pinned onto the distal femur. The anterior, posterior, and chamfer cuts were made. The expanded function dental assistant protected the collateral ligaments. The box cutting guide was pinned. The box cuts were made. The boxed trial was placed and was an excellent fit. Drill holes for the lugs were made. Attention was then turned to the proximal tibia. The extramedullary tibial guide was placed for a neutral varus/valgus cut with 5 degrees of posterior slope, removing 2 mm based off the medial tibial surface. The expanded function dental assistant protected the collateral ligaments and the neurovascular bundle. The saw was used to make the cut. Trial components were placed. The knee was nicely balanced in both flexion and extension. The trial components were removed. The tray was placed in appropriate rotation, parallel to our tibial cutting pins. It was pinned by the expanded function dental assistant and the drill and the punch were used. The tray was removed. The punch was used again. We placed a bone plug in the femoral canal. Attention was then turned to the patella. [place] patellar thickness was 24 mm on the medial side, significantly thinner on the lateral side with bone loss. The lobster claw resection guide was used with the 7.5 mm elvis. The saw was used to make the cut. Drill holes were made by the expanded function dental assistant. The trial was placed and was an excellent fit. Cancellous surfaces were irrigated with pulse lavage and thoroughly dried by the expanded function dental assistant. We cemented the tibial component, then the femoral component. We impacted the 5 mm polyethylene onto the tibial tray. The knee was brought into full extension. We then cemented the patellar component. Excessive cement was removed. The cement was allowed to harden. The knee was taken through a range of motion and was found to be nicely balanced in both flexion and extension. The patella tracks centrally. The expanded function dental assistant did a three minute dilute Betadine solution soak. The expanded function dental assistant irrigated the wound with 3 liters of normal saline via pulse lavage. The expanded function dental assistant reapproximated the extensor mechanism with #1 Vicryl in an interrupted [id number] fashion. The expanded function dental assistant then ran the extensor mechanism with a #1 PDO Stratafix. The expanded function dental assistant closed the subcutaneous tissues with a 3-0 Stratafix and the skin with a running 3-0 Stratafix in a subcuticular fashion. Glue was used to seal the skin. The expanded function dental assistant placed a dry dressing. Sponge and needle counts were correct x2. The patient tolerated the procedure well. There were no apparent complications. They were carefully transferred to the hospital bed and taken to the postanesthesia care unit in satisfactory condition. PLAN: The patient will be mobilized with physical therapy. Aspirin will be used for DVT prophylaxis. They will be discharged to home once medically appropriate.
--- NOTE | 2024-07-20 10:03 | W.PM.NB ---
Nerve Block Nerve Block Time Seen by Provider: 08:00 Date Seen: 07/20/24 Type of block requested by surgeon for post-operative analgesia: adductor canal Side: right Time out performed: Yes Verification of patient name: Yes Verification of date of : Yes Site marking: site marked Name of person performing procedure: [place] Continuous monitoring Was continuous monitoring of O2 sat, B/P, environmental monitoring technician, recorded every 15 minutes?: Yes Procedure Checklist: sterile prep, needles and gloves Ultrasound guided. Images saved: Yes Medications given in 5ml increments after negative aspiration: Marcaine %: 0.5 mL: 20 Needle gauge: 22 Decadron (mg): 10 Precedex (mcg): 10 Patient tolerated procedure well: Yes Block Charges Block Charge (with Pro Fee): Femoral Nerve Use of Ultrasound Machine for Block: Yes- US Guidance/pain block
--- NOTE | 2024-07-20 10:05 | W.PM.NB ---
Nerve Block Nerve Block Time Seen by Provider: 08:00 Date Seen: 07/20/24 Type of block requested by surgeon for post-operative analgesia: geniculars Side: right Time out performed: Yes Verification of patient name: Yes Verification of date of : Yes Site marking: site marked Name of person performing procedure: [place]ol[place] Continuous monitoring Was continuous monitoring of O2 sat, B/P, equipment monitor phototypesetting, recorded every 15 minutes?: Yes Procedure Checklist: sterile prep, needles and gloves Ultrasound guided. Images saved: No Medications given in 5ml increments after negative aspiration: Marcaine %: 0.5 mL: 10 Needle gauge: 22 Patient tolerated procedure well: Yes Block Charges Block Charge (with Pro Fee): Genicular Nerve Block Use of Ultrasound Machine for Block: No
--- NOTE | 2024-07-20 10:29 | W.ANESCHARGE ---
Anesthesia Charges Start Date/Time Anesthesia Start Date: 07/20/24 Anesthesia Start Time: 08:43 Stop Date/Time Anesthesia Stop Date: 07/20/24 Anesthesia Stop Time: 10:29
[2024-07-20] MEDS: OXYCODONE 5 MG TABLET PO (12:15)
[2024-07-20] MEDS: hydrOXYzine pamoate 25 MG CAPSULE PO (12:50)
[2024-07-20] MEDS: HYDROmorphone 0.5 mg/0.5 ml inj IVP (12:50)
[2024-07-20] MEDS: ONDANSETRON 2 MG/ML inj 4 MG IVP (12:50)
[2024-07-20] MEDS: METOCLOPRAMIDE HCL 5 MG/ML INJ 10 MG IVP (15:30)
[2024-07-20] MEDS: 0.9 % SODIUM CHLORIDE 500 ML IV (15:35)
== END 2024-07-20 16:19 | disposition home or self-care (01) ==
PROVIDERS: PCP Family Medicine; Visit Provider Orthopaedic Surgery
PROC: (CPT 27447; principal; 2024-07-20 09:00)
DX: M17.11 Unilateral primary osteoarthritis, right knee (principal); G89.18 Other acute postprocedural pain
CPT/HCPCS: 27447; 01402; 64447; 64454; 73560; 76942; 97110; 97116; 97161; A9270; C1776; J0665; J0690; J1100; J1171; J2250; J2405; J2704; J2765; J3010; J7030; J7120

== ENCOUNTER 2024-08-31 13:00 | Outpatient (RCR) | payer BC, SELFPAY | END 2024-12-29 23:59 | disposition home or self-care (01) | PROVIDERS: PCP Family Medicine; Visit Provider Orthopaedic Surgery | DX: Z47.1 Aftercare following joint replacement surgery (principal); M17.11 Unilateral primary osteoarthritis, right knee; Z96.651 Presence of right artificial knee joint; Z51.89 Encounter for other specified aftercare | CPT/HCPCS: 97110; 97161; 97164 ==

== ENCOUNTER 2024-09-15 15:36 | Outpatient (CLI) | payer BC, SELFPAY | END 2024-09-15 15:37 | disposition home or self-care (01) | LOC: NFLDREF 15:47 | PROVIDERS: PCP Family Medicine; Visit Provider Obstetrics & Gynecology | DX: N81.10 Cystocele, unspecified (principal); R82.90 Unspecified abnormal findings in urine | CPT/HCPCS: 87086 ==

== ENCOUNTER 2024-11-07 15:18 | Outpatient (CLI) | payer BC, SELFPAY ==
--- NOTE | 2024-11-07 15:20 | CRLHL7_ITS ---
For Patients: As a result of the Century Cures Act, medical imaging exams and procedure reports are released immediately into your electronic medical record. You may view this report before your referring provider. If you have questions, please contact your health care provider. INDICATION: BILATERAL SCREENING MAMMOGRAM, ASYMPTOMATIC 64 F COMPARISON: 10/08/23, 10/06/22, 09/03/21 TECHNIQUE: CC and MLO views were obtained. These mammographic images have been obtained using full-field digital technique. These mammographic images were interpreted with the benefit of computer aided detection and tomosynthesis. BREAST COMPOSITION: The breasts are heterogeneously dense, which may obscure small masses. FINDINGS: No suspicious findings. ASSESSMENT: BI-RADS 2 Benign RECOMMENDATION: Annual screening mammogram. A lay language report of this examination will be provided to the patient. Dictated by: Edwin Doyle MD @ 11/09/2024 12:50:36 (Electronically Signed)
== END 2024-11-07 15:19 | disposition home or self-care (01) ==
LOC: MAMMO 15:19
PROVIDERS: PCP Family Medicine; Referring Provider Physician Assistant; Visit Provider Family Medicine
DX: Z12.31 Encounter for screening mammogram for malignant neoplasm of breast (principal); R92.333 Mammographic heterogeneous density, bilateral breasts
CPT/HCPCS: 77063; 77067

== ENCOUNTER 2024-12-21 14:50 | Outpatient (RCR) | payer BC, SELFPAY ==
--- NOTE | 2024-08-24 15:33 | ONC.NURNOTE ---
Patient called stating she has been on Anastrozole for 8 years and just had a knee replacement and is having alot of pain and thinks it may help decrease her pain if she can go off of her Anastrazole. Recoverer spoke with Darby MARTINEZ and she would like patient to come in, however patient unable to drive. Darby Vitale stated it has been 7 years and they were hoping patient would be on Anastrazole 7 years so she is comfortable with patient coming off it but would like a follow up appointment when patient able to drive. Patient promises to make follow up appt when driving privileges restored!
== END 2025-03-10 23:59 | disposition home or self-care (01) ==
LOC: CCIC 14:50
PROVIDERS: PCP Family Medicine; Visit Provider Physician Assistant
DX: C50.912 Malignant neoplasm of unspecified site of left female breast (principal); Z17.0 Estrogen receptor positive status [ER+]; Z79.811 Long term (current) use of aromatase inhibitors; M85.80 Other specified disorders of bone density and structure, unspecified site
CPT/HCPCS: 99214; G0463

== ENCOUNTER 2025-02-02 07:38 | Outpatient (CLI) | payer BC, SELFPAY | END 2025-02-02 07:39 | disposition home or self-care (01) | LOC: NFLDREF 02-04 23:39 | PROVIDERS: PCP Family Medicine; Referring Provider Family Medicine; Visit Provider Family Medicine | DX: E78.5 Hyperlipidemia, unspecified (principal); I10 Essential (primary) hypertension; M85.89 Other specified disorders of bone density and structure, multiple sites; R73.9 Hyperglycemia, unspecified; M81.0 Age-related osteoporosis without current pathological fracture | CPT/HCPCS: 80053; 80061; 82306 ==

== ENCOUNTER 2025-07-18 08:47 | Outpatient (CLI) | payer BC, SELFPAY | END 2025-07-18 08:48 | disposition home or self-care (01) | LOC: NFLDREF 08:48 | PROVIDERS: PCP Family Medicine; Visit Provider Family Medicine | DX: I10 Essential (primary) hypertension (principal) | CPT/HCPCS: 80048 ==